=== PATIENT | female | born 1985 | race Caucasian/White ===

== ENCOUNTER → 2022-07-22 15:22 | Outpatient (BNVA) | payer OTHER, SELFPAY | PROVIDERS: PCP Family Medicine; Visit Provider Physician Assistant Surgical | DX: Z13.89 Encounter for screening for other disorder (principal) ==

== ENCOUNTER → 2022-08-05 08:04 | Outpatient (BNVA) | payer OTHER, SELFPAY | PROVIDERS: PCP Family Medicine; Visit Provider Surgery ==

== ENCOUNTER 2022-08-12 08:24 | Outpatient (REF) | payer OTHER, SELFPAY ==
--- NOTE | ~2022-08-12 | XR_ITS ---
EXAMINATION: XR CHEST CLINICAL INFORMATION: Bariatric service evaluation. E66.9. COMPARISON: None available. TECHNIQUE: 2 views of the chest were obtained. FINDINGS: The lungs are clear. Heart size normal. Vascularity normal. The costophrenic sulci are well-defined. The hilar and mediastinal contours and bony structures are unremarkable. XR/XR chest 2V IMPRESSION: Unremarkable examination.
[2022-08-12 08:41] LABS: MANUAL DIFF FLAG NO
[2022-08-12 09:18] LABS: Basophils Percent Auto 0.4 % (0-2); Eosinophils Absolute Auto 0.1 X10*3/uL (0.0-0.4); Eosinophils Percent Auto 1.9 % (0-4); Hematocrit 43.5 % (37.0-47.0); Hemoglobin 14.2 g/dl (12.0-16.0); Imm Gran Abs Auto 0.03 X10*3/uL (0.00-0.03); Imm Gran Pct Auto 0.4 % (0.0-0.4); Lymphocytes Absolute Auto 1.6 X10*3/uL (1.2-4.9); Lymphocytes Percent Auto 23.7 % (20-40); Mean Corpuscular HGB Conc 32.6 g/dl (31.0-35.0); Mean Corpuscular Hemoglobin 30.5 pg (27.0-33.0); Mean Corpuscular Volume 93.3 fL (80.0-98.0); Mean Platelet Volume 10.7 fL (9.4-12.3); Monocytes Absolute Auto 0.3 X10*3/uL (0.1-1.2); Monocytes Percent Auto 5.1 % (2-11); Neutrophils Absolute Auto 4.6 x10*3/uL (2.0-8.3); Neutrophils Percent Auto 68.5 % (45-73); Platelet Count 234 X10*3/uL (160-400); Red Blood Count 4.66 X10*6/uL (4.20-5.50); Red Cell Distribution Width 13.1 % (11.0-16.0); White Blood Count 6.7 X10*3/uL (4.8-10.8)
[2022-08-12 09:27] LABS: Estimated Average Glucose 103 mg/dL; Hemoglobin A1c % 5.2 %
[2022-08-12 10:01] LABS: Alanine Aminotransferase 21 U/L (0-31); Alkaline Phosphatase 73 U/L (39-117); Anion Gap 8 (12-20); Aspartate Amino Transferase 20 U/L (5-31); Bilirubin Total 0.4 mg/dL (0.0-1.0); Blood Urea Nitrogen 12 mg/dL (9-16); C Reactive Protein 0.23 mg/dL (< or = 0.50); Calcium 9.4 mg/dL (8.4-10.2); Carbon Dioxide 26 mmol/L (22-29); Chloride 108 mmol/L (96-108); Cholesterol 159 mg/dL; Estimated Glomerular Filt Rate > 60; Glucose Random 94 mg/dL (60-115); HDL Cholesterol 50 mg/dL; Iron 85 mcg/dL (30-160); LDL Cholesterol Calculated 87 mg/dl; Percent Iron Saturation 25 % (15-50); Potassium 4.4 mmol/L (3.3-5.1); Sodium 138 mmol/L (135-145); Total Iron Binding Capacity 338 mcg/dL (228-428); Total Protein 6.9 g/dL (6.5-8.0); Triglycerides 111 mg/dL; Unsaturated Iron Binding 253 ug/dL
[2022-08-12 10:30] LABS: Ferritin 48 ng/mL (10-122); Folate 6.4 ng/mL (> or = 4.0); Insulin 9 uU/mL (2-29); Vitamin B12 373 pg/mL (200-900); Vitamin D 25-OH Total 22.1 ng/mL (>30)
[2022-08-12 10:39] LABS: TSH reflex Free T4 2.88 uIU/mL (0.32-4.0)
[2022-08-13 16:13] LABS: Calcium (PTHI) 9.4 mg/dL (8.6-10.2); PTHI 42 pg/mL (16-77)
[2022-08-15 06:19] LABS: Zinc 72 mcg/dL (60-130)
[2022-08-16 12:23] LABS: Vitamin B1 8 nmol/L (8-30)
[2022-08-16 17:14] LABS: Vitamin A 48 mcg/dL (38-98)
== END 2022-08-12 08:25 | disposition home or self-care (01) ==
LOC: HO.10HDL 08:24
PROVIDERS: Visit Provider Surgery
DX: E66.9 Obesity, unspecified (principal); I10 Essential (primary) hypertension; Z68.35 Body mass index [BMI] 35.0-35.9, adult
CPT/HCPCS: 36415; 71046; 80053; 80061; 82306; 82607; 82728; 82746; 83036; 83525; 83540; 83970; 84425; 84443; 84590; 84630; 85025; 86140

== ENCOUNTER → 2022-08-19 13:43 | Outpatient (BNVA) | payer OTHER, SELFPAY | PROVIDERS: PCP Family Medicine; Visit Provider Dietitian, Registered | DX: E66.9 Obesity, unspecified (principal); Z68.33 Body mass index [BMI] 33.0-33.9, adult | CPT/HCPCS: 97802 ==

== ENCOUNTER → 2022-09-11 08:04 | Outpatient (BNVA) | payer OTHER, SELFPAY | PROVIDERS: PCP Family Medicine; Visit Provider Surgery ==

== ENCOUNTER → 2022-09-16 13:00 | Outpatient (BNVA) | payer OTHER, SELFPAY | PROVIDERS: PCP Family Medicine; Visit Provider Counselor Mental Health ==

== ENCOUNTER → 2022-09-17 13:18 | Outpatient (BNVA) | payer OTHER, SELFPAY | PROVIDERS: PCP Family Medicine; Visit Provider Dietitian, Registered | DX: E66.9 Obesity, unspecified (principal); I10 Essential (primary) hypertension; Z68.32 Body mass index [BMI] 32.0-32.9, adult | CPT/HCPCS: 97803 ==

== ENCOUNTER → 2022-09-30 13:24 | Outpatient (BNVA) | payer OTHER, SELFPAY | PROVIDERS: PCP Family Medicine; Visit Provider Surgery | DX: Z11.0 Encounter for screening for intestinal infectious diseases (principal) | CPT/HCPCS: 99211 ==

== ENCOUNTER 2022-10-01 19:49 | Outpatient (REF) | payer OTHER, SELFPAY ==
[2022-10-02 13:23] LABS: H Pylori Breath Test Negative (Negative)
== END 2022-10-01 19:50 | disposition home or self-care (01) ==
LOC: HO.LNP 19:49
PROVIDERS: Visit Provider Surgery
DX: E66.9 Obesity, unspecified (principal); Z68.35 Body mass index [BMI] 35.0-35.9, adult; I10 Essential (primary) hypertension
CPT/HCPCS: 83013

== ENCOUNTER → 2022-10-02 08:03 | Outpatient (BNVA) | payer OTHER, SELFPAY | PROVIDERS: PCP Family Medicine; Visit Provider Surgery ==

== ENCOUNTER → 2022-10-09 13:30 | Outpatient (BNVA) | payer OTHER, SELFPAY | PROVIDERS: PCP Family Medicine; Visit Provider Counselor Mental Health | DX: F41.9 Anxiety disorder, unspecified (principal); E66.9 Obesity, unspecified ==

== ENCOUNTER 2022-10-15 08:01 | Outpatient (REF) | payer OTHER, SELFPAY ==
--- NOTE | ~2022-10-15 | FL_ITS ---
EXAMINATION: XR FLUOROSCOPY UPPER GI WITH AIR CLINICAL INFORMATION: Obesity COMPARISON: None available. TECHNIQUE: Routine upper GI air-contrast study was performed. FINDINGS: Following oral administration of thick barium and effervescent granules there is normal antegrade propagation of bolus from the oral cavity through the pharynx, esophagus into stomach without any obstruction or narrowing. On placing supine and prone lying the course, caliber and peristalsis of the stomach, duodenal bulb and sweep is normal. The mucosal pattern of the duodenum and stomach is normal. No gastroesophageal reflux or hiatal hernia seen. FLUOROSCOPY TIME: 1.0 minutes DOSE AREA PRODUCT: 20.345 uGy-m2 (microgray-meter squared) FL/FL upper GI w air IMPRESSION: Unremarkable upper GI contrast study.
--- NOTE | ~2022-10-15 | US_ITS ---
EXAMINATION: US COMPLETE ABDOMEN WITH LIVER ELASTOGRAPHY CLINICAL INFORMATION: Obesity COMPARISON: None available. TECHNIQUE: Real-time imaging of the abdominal viscera. Noninvasive ultrasound liver fibrosis assessment is performed using Jay ElastPQ point quantification shear wave elastography (2D-SWE) with a C5-2 MHz transducer. Multiple elastography samples are obtained. FINDINGS: PANCREAS: Normal. ABDOMINAL AORTA: The proximal, middle, and distal aortic segments are normal in caliber. INFERIOR VENA CAVA: Visualized portions are normal. LIVER: Normal. The liver demonstrates normal size, contour and echogenicity. No focal lesion or intrahepatic biliary duct dilatation. The right lobe measures 15 cm in length. The left lobe measures 10 cm in length. Portal flow is normal/hepatopedal Shear wave liver elastography median stiffness is 1.6 m/s (reference: normal median stiffness is 1.3 m/s or less). IQR/median stiffness to assess sampling precision is 0.15 (reference: good quality data set is IQR/median stiffness of 0.15 or less). GALLBLADDER: Normal. The gallbladder is physiologically distended without evidence of stones, sludge, polyps, wall thickening or pericholecystic fluid. COMMON BILE DUCT: Normal in caliber measuring 0.3 cm in diameter. RIGHT KIDNEY: Normal. No hydronephrosis. No renal calculi or focal parenchymal lesions. The kidney measures 11 cm in maximum dimension. LEFT KIDNEY: Normal. No hydronephrosis. No renal calculi or focal parenchymal lesions. The kidney measures 11.4 cm in maximum dimension. SPLEEN: Normal. The spleen measures 11.6 cm in maximum dimension. FREE FLUID: None. US/US abdomen comp w elastography IMPRESSION: 1. Impression: Normal abdominal ultrasound. 2. Liver elastography: Adequate liver sampling. In the absence of other known clinical signs, rules out compensated advanced chronic liver disease. REFERENCE: Society of Radiologists in Ultrasound Liver Stiffness Thresholds (2020): LIVER STIFFNESS THRESHOLDS: *Liver Stiffness equal or less than 1.3 m/s: High probability of being normal. *Liver Stiffness less than 1.7 m/s: In the absence of other known clinical signs, rules out compensated advanced chronic liver disease. *Liver Stiffness 1.7-2.1 m/s: Suggestive of compensated advanced chronic liver disease but need further test for confirmation. *Liver Stiffness over 2.1 m/s: Rules in compensated advanced chronic liver disease. *Liver Stiffness over 2.4 m/s: Suggestive of clinically significant portal hypertension. QUALITY OF DATA SET: *IQR/Median value equal or less than 0.15 implies a quality data set. *IQR/Median value over 0.15 implies a poor quality data set. SIGNIFICANT CHANGE FROM PRIOR EXAM: Significant change if liver stiffness measurement is 10% or greater from prior exam. OTHER CONSIDERATIONS: The stage of liver fibrosis may be overestimated in the setting of acute hepatitis, liver inflammation, elevated liver function tests, hepatic vascular congestion, obstructive cholestasis, non-fasting state, and infiltrative diseases such as amyloidosis and lymphoma. In some patients with NAFLD, the liver stiffness thresholds for compensated advanced chronic liver disease may be lower. In causes other than viral hepatitis and NAFLD, liver stiffness thresholds are not well established.
--- NOTE | 2022-10-15 08:06 | ECG_ITS ---
Test Reason : obesity Blood Pressure : / mmHG Vent. Rate : 058 BPM Atrial Rate : 058 BPM P-R Int : 140 ms QRS Dur : 082 ms QT Int : 410 ms P-R-T Axes : 015 044 018 degrees QTc Int : 402 ms Sinus bradycardia Otherwise normal ECG No previous ECGs available Referred By: Pedro Mcintyre Electronically Signed By:KENAN MORRIS MD
== END 2022-10-15 08:02 | disposition home or self-care (01) ==
LOC: HO.US 08:01
PROVIDERS: PCP Family Medicine; Visit Provider Surgery
DX: Z01.818 Encounter for other preprocedural examination (principal); E66.9 Obesity, unspecified; K21.9 Gastro-esophageal reflux disease without esophagitis; I10 Essential (primary) hypertension
CPT/HCPCS: 74246; 76705; 76981; 93005

== ENCOUNTER → 2022-10-21 08:16 | Outpatient (BNVA) | payer OTHER, SELFPAY | PROVIDERS: PCP Family Medicine; Visit Provider Surgery ==

== ENCOUNTER → 2022-10-28 15:12 | Outpatient (BNVA) | payer OTHER, SELFPAY | PROVIDERS: PCP Family Medicine; Referring Provider Family Medicine; Visit Provider Surgery ==

== ENCOUNTER 2022-10-31 08:33 | Inpatient (IN) | payer OTHER, SELFPAY ==
[2022-10-24 08:41] LABS: MANUAL DIFF FLAG NO
[2022-10-24 09:16] LABS: Basophils Percent Auto 0.3 % (0-2); Eosinophils Absolute Auto 0.1 X10*3/uL (0.0-0.4); Eosinophils Percent Auto 1.4 % (0-4); Hematocrit 44.1 % (37.0-47.0); Hemoglobin 14.4 g/dl (12.0-16.0); Imm Gran Abs Auto 0.02 X10*3/uL (0.00-0.03); Imm Gran Pct Auto 0.3 % (0.0-0.4); Mean Corpuscular HGB Conc 32.7 g/dl (31.0-35.0); Mean Corpuscular Hemoglobin 30.6 pg (27.0-33.0); Mean Corpuscular Volume 93.8 fL (80.0-98.0); Mean Platelet Volume 10.9 fL (9.4-12.3); Monocytes Absolute Auto 0.4 X10*3/uL (0.1-1.2); Monocytes Percent Auto 6.8 % (2-11); Neutrophils Absolute Auto 4.2 x10*3/uL (2.0-8.3); Neutrophils Percent Auto 73.2 % (45-73); Platelet Count 205 X10*3/uL (160-400); Red Cell Distribution Width 13.3 % (11.0-16.0); White Blood Count 5.7 X10*3/uL (4.8-10.8)
[2022-10-24 09:23] LABS: Estimated Average Glucose 94 mg/dL; Hemoglobin A1c % 4.9 %
[2022-10-24 09:24] LABS: INTERNATIONAL NORM RATIO 0.9 (0.9-1.1); Prothrombin Time 10.5 SEC (10.0-13.1)
[2022-10-24 09:27] LABS: Partial Thromboplastin Time 28.2 SEC (26.0-36.4)
[2022-10-24 10:33] LABS: TSH reflex Free T4 1.81 uIU/mL (0.32-4.0)
[2022-10-24 10:42] LABS: Alanine Aminotransferase 35 U/L (0-31); Albumin Level 4.3 g/dL (3.5-5.0); Alkaline Phosphatase 80 U/L (39-117); Anion Gap 12 (12-20); Aspartate Amino Transferase 35 U/L (5-31); Bilirubin Total 0.8 mg/dL (0.0-1.0); Blood Urea Nitrogen 9 mg/dL (9-16); C Reactive Protein 0.45 mg/dL (< or = 0.50); Calcium 9.9 mg/dL (8.4-10.2); Carbon Dioxide 29 mmol/L (22-29); Chloride 105 mmol/L (96-108); Cholesterol 176 mg/dL; Estimated Glomerular Filt Rate > 60; Glucose Random 82 mg/dL (60-115); HDL Cholesterol 55 mg/dL; LDL Cholesterol Calculated 105 mg/dl; Potassium 4.5 mmol/L (3.3-5.1); Sodium 141 mmol/L (135-145); Total Protein 7.4 g/dL (6.5-8.0); Triglycerides 80 mg/dL
[2022-10-24 10:53] LABS: Insulin 11 uU/mL (2-29)
--- NOTE | 2022-10-26 13:03 | P.HPSUR_ITS ---
Pre-Procedural Eval Section A Date of Service: 10/26/22 The patient is an INPATIENT: Yes The History & Physical has been completed within 30 days and I have reviewed it.: Yes Section B Chief Complaint: Obesity, unspecified Relevant Family History (Specify if Yes): No Relevant Social History: None Present Medications: None Medical History: No relevant PMH History of Previous Operations: No relevant previous surgery Allergies: Allergies Allergy/AdvReac Type Severity Reaction Status Date / Time amoxicillin [From Augmentin] Allergy Mild Diarrhea Verified 10/21/22 09:56 clavulanic acid Allergy Mild Diarrhea Verified 10/21/22 09:56 [From Augmentin] bactrim AdvReac Abdominal Uncoded 10/21/22 09:56 Pain Review of Systems Sugical H&P ROS: Negative: Constitution, Cardiovascular, Respiratory, Isa rological, Psychiatric, Hem-Onc, Allergic/Immunologic, Gastrointestinal, Genitourinary, Musculoskeletal, Integumentary, Endocrine and Eyes/Ears/Nose/Throat Exam Surgical H&P Exam: Normal: HEENT, Normal: Heart, Normal: Lungs, Normal: Extremities, Normal: Abdomen, Normal: Skin and Normal: Neurological Plan Diagnosis/Plan: Unchanged I have reviewed the history and physical and performed a pertinent physical examination on my patient. No changes have occurred unless specified. Time Spent With Patient Time: Total time managing care of this patient today ____ minutes.
[2022-10-28 13:56] VITALS: BMI 30.5
--- NOTE | 2022-10-30 08:29 | HO.ANESPROP2 ---
Documented by User: Meka Pack NP 10/30/22 08:30 HPI - Anesthesia Eval Consult details Narrative: 37yo F for Gastrectomy Sleeve,EGD,poss diaphragmatic hernia,poss ventral hernia,poss open, PMFSH Active Problems Active Problems: All Active Problems (Updated 10/28/22 @ 13:47 by Jamee Bob, RN) Obesity (Acute) BMI 35.0-35.9,adult (Acute) Knee pain (Acute) Hip pain (Acute) Arnold-Chiari malformation (Acute) Migraines (Acute) Vitamin D deficiency (Acute) Vitamin B12 deficiency (Acute) Constipation (Acute) BMI 33.0-33.9,adult (Acute) Anxiety disorder, unspecified (Acute) BMI 31.0-31.9,adult (Acute) Hypertension (Acute) Past Medical History Medical History (Updated 10/31/22 @ 10:13 by Pedro Mcintyre MD) GERD (gastroesophageal reflux disease) History of palpitations Hypertension Family History Family History (Updated 07/22/22 @ 15:35 by Rosa M Grimaldo [facility]) Mother Mental health disorder Father Arthritis Sister No problems noted. Sister No problems noted. Sister Asthma Son Anxiety ADHD Autism disorder Surgical History Surgical History (Updated 10/31/22 @ 12:06 by Pedro Mcintyre MD) Hx of appendectomy Social History Social History (Updated 10/28/22 @ 13:46 by Jamee Bob, ESTHER) Household Members: None Household Members Other:: son age 14 yrs Housing: House Are you a primary care information associate to a significant other at home: Yes (son) Do you presently have visiting nurse or other home services: No Alcohol intake: current Alcohol intake frequency: holidays/special occasions only Patient Tobacco Use Status: Former Tobacco user Quit Date: 10/14/2022 Tobacco use type: Cigarette Years Smoked: 20 Use of substances other than those prescribed or required for medical reasons: No Substance Use Type: Marijuana Substance Use Frequency: Daily Currently Displaying Signs/Symptoms of Drug Intoxication Withdrawal: No Have you been hit, kicked, punched, or otherwise hurt by someone within the past year? If so, by whom?: No Do you feel safe in your current relationship?: Yes Is there a partner from a previous relationship who is making you feel unsafe now?: No Are you made to feel afraid or neglected: No Are you DNR?: No Advance Directives: No Advance Directives Information Provided: Yes Advance Directives on File: No Do you have thoughts of harming others: None Do you have a plan to hurt others: No Plan Recently lost weight without trying: No Nutrition Risks: No Nutritional Risk Patient : Yes FDLMP: 10/13/2022 : No Poor oral hygiene: No Meds Allergies Allergy/AdvReac Type Severity Reaction Status Date / Time amoxicillin [From Augmentin] Allergy Mild Diarrhea Verified 10/21/22 09:56 clavulanic acid Allergy Mild Diarrhea Verified 10/21/22 09:56 [From Augmentin] metronidazole [From Metrogel] Allergy Swelling Verified 10/31/22 08:58 bactrim AdvReac Abdominal Uncoded 10/21/22 09:56 Pain Home Medications Medication Instructions Recorded Confirmed Last Taken Type metoprolol succinate 25 mg 25 mg PO BEDTIME 07/22/22 10/31/22 10/30/22 History tablet,extended release 24 hr Exam Exam Date and Time: October 30, 2022 0829 Height,Weight and Vital Signs: Height 5 ft 2 in Weight 75.75 kg Pertinent Lab Results Pertinent Lab Results: Laboratory Tests 10/24/22 10/24/22 10/24/22 08:36 08:36 08:36 WBC 5.7 RBC 4.70 Hgb 14.4 Hct 44.1 MCV 93.8 MCH 30.6 MCHC 32.7 RDW 13.3 Plt Count 205 MPV 10.9 Immature Gran % (Auto) 0.3 Neut % (Auto) 73.2 H Lymph % (Auto) 18.0 L Loving % (Auto) 6.8 Eos % (Auto) 1.4 Baso % (Auto) 0.3 Lymph # (Auto) 1.0 L Loving # (Auto) 0.4 Eos # (Auto) 0.1 Baso # (Auto) 0.0 Abs Immat Gran (auto) 0.02 Absolute Neuts (auto) 4.2 Absolute Nucleated RBC 0.000 Nucleated RBC % (auto) 0.0 PT 10.5 INR 0.9 APTT 28.2 Sodium 141 Potassium 4.5 Chloride 105 Carbon Dioxide 29 Anion Gap 12 BUN 9 Creatinine 0.84 Estim Creat Clear Calc TNP Estimated GFR > 60 Random Glucose 82 Estimat Average Glucose Hemoglobin A1c % Insulin Level 11 Calcium 9.9 Total Bilirubin 0.8 AST 35 H ALT 35 H Alkaline Phosphatase 80 C-Reactive Protein 0.45 Total Protein 7.4 Albumin 4.3 Triglycerides 80 Cholesterol 176 LDL Cholesterol, Calc 105 HDL Cholesterol 55 TSH 1.81 Blood Type Antibody Screen 10/24/22 10/24/22 08:36 12:53 WBC RBC Hgb Hct MCV MCH MCHC RDW Plt Count MPV Immature Gran % (Auto) Neut % (Auto) Lymph % (Auto) Loving % (Auto) Eos % (Auto) Baso % (Auto) Lymph # (Auto) Loving # (Auto) Eos # (Auto) Baso # (Auto) Abs Immat Gran (auto) Absolute Neuts (auto) Absolute Nucleated RBC Nucleated RBC % (auto) PT INR APTT Sodium Potassium Chloride Carbon Dioxide Anion Gap BUN Creatinine Estim Creat Clear Calc Estimated GFR Random Glucose Estimat Average Glucose 94 Hemoglobin A1c % 4.9 Insulin Level Calcium Total Bilirubin AST ALT Alkaline Phosphatase C-Reactive Protein Total Protein Albumin Triglycerides Cholesterol LDL Cholesterol, Calc HDL Cholesterol TSH Blood Type O Negative Antibody Screen NEGATIVE Narrative Narrative: EKG 09/2022 Vent. Rate : 058 BPM ? ? Atrial Rate : 058 BPM ?? P-R Int : 140 ms? QRS Dur : 082 ms ? ? QT Int : 410 ms ? ? ? P-R-T Axes : 015 044 018 degrees ?? QTc Int : 402 ms ? Sinus bradycardia Otherwise normal ECG No previous ECGs available Assessment and Plan Assessment Anesthesia Assessment: Chart Reviewed Documented by User: Troy Clark MD 10/31/22 14:29 HPI - Anesthesia Eval Consult details Narrative: 37yo F for Gastrectomy Sleeve,EGD,poss diaphragmatic hernia,poss ventral hernia,poss open, As per patient no balance problems , dysphagia, or any other symptoms. saw neurologist a few years ago and had mRI done , was told malformation has resolved . [facility] Past Medical History Medical History (Updated 10/31/22 @ 10:13 by Pedro Mcintyre MD) GERD (gastroesophageal reflux disease) History of palpitations Hypertension Functional capacity: independent ambulation Family History Family History (Updated 07/22/22 @ 15:35 by Rosa M Grimaldo CMA) Mother Mental health disorder Father Arthritis Sister No problems noted. Sister No problems noted. Sister Asthma Son Anxiety ADHD Autism disorder Family history of problems with anesthesia: Yes (delayed emergence in mother .) Surgical History Surgical History (Updated 10/31/22 @ 12:06 by Pedro Mcintyre MD) Hx of appendectomy History of Problems with Anesthesia: No Social History Social History (Updated 10/28/22 @ 13:46 by Jamee Bob RN) Household Members: None Household Members Other:: son age 14 yrs Housing: House Are you a primary care information associate to a significant other at home: Yes (son) Do you presently have visiting nurse or other home services: No Alcohol intake: current Alcohol intake frequency: holidays/special occasions only Patient Tobacco Use Status: Former Tobacco user Quit Date: 10/14/2022 Tobacco use type: Cigarette Years Smoked: 20 Use of substances other than those prescribed or required for medical reasons: No Substance Use Type: Marijuana Substance Use Frequency: Daily Currently Displaying Signs/Symptoms of Drug Intoxication Withdrawal: No Have you been hit, kicked, punched, or otherwise hurt by someone within the past year? If so, by whom?: No Do you feel safe in your current relationship?: Yes Is there a partner from a previous relationship who is making you feel unsafe now?: No Are you made to feel afraid or neglected: No Are you DNR?: No Advance Directives: No Advance Directives Information Provided: Yes Advance Directives on File: No Do you have thoughts of harming others: None Do you have a plan to hurt others: No Plan Recently lost weight without trying: No Nutrition Risks: No Nutritional Risk Patient : Yes FDLMP: 10/13/2022 : No Poor oral hygiene: No Meds Allergies Allergy/AdvReac Type Severity Reaction Status Date / Time amoxicillin [From Augmentin] Allergy Mild Diarrhea Verified 10/21/22 09:56 clavulanic acid Allergy Mild Diarrhea Verified 10/21/22 09:56 [From Augmentin] metronidazole [From Metrogel] Allergy Swelling Verified 10/31/22 08:58 bactrim AdvReac Abdominal Uncoded 10/21/22 09:56 Pain Home Medications Medication Instructions Recorded Confirmed Last Taken Type metoprolol succinate 25 mg 25 mg PO BEDTIME 07/22/22 10/31/22 10/30/22 History tablet,extended release 24 hr Exam Narrative Narrative: EKG 09/2022 Vent. Rate : 058 BPM ? ? Atrial Rate : 058 BPM ?? P-R Int : 140 ms? QRS Dur : 082 ms ? ? QT Int : 410 ms ? ? ? P-R-T Axes : 015 044 018 degrees ?? QTc Int : 402 ms ? Sinus bradycardia Otherwise normal ECG No previous ECGs available Excercise Stress Test 06/18/2022 Negative exercise Stress test Patient Exercised for 9 minutes and 19 seconds on a standard Obie protocol acheiving a peak HR of 160 BPM which is 87 % MPHR . No chest pain and no ischemic EKG changes No sustained arrythmia . Rare isolated PAC. Airway Mallampati Class: IV Neck ROM: Full Loose/Missing/Broken Teeth: Yes Assessment and Plan Assessment Anesthesia Assessment: Anesthesia Plan Discussed Final Anesthetic Review Family History of Problems with Anesthesia: Yes (delayed emergence in mother .) History of Problems with Anesthesia: No NPO: Yes ASA Class: III Final Preanesthetic Review: Meds/Allgs Chart Reviewed, Consent Obtained/Reviewed and Anes Risks/Benef Reviewed Patient Risk: High Procedure Risk: Intermediate Anesthetic Plan Anesthetic Plan: GA Disposition: Standard PACU and Inp. Admit - Standard Bed
[2022-10-30 14:31] LABS: COVID-19 Test Negative (Negative); IDNOW Serial# 08D9AD1C
[2022-10-31] VITALS (17 sets, daily range): BP systolic 114–148; BP diastolic 70–92; PULSE 56–84; RESP 15–28; TEMP 36.2–36.6; O2SAT 95–100
[2022-10-31 08:41] LABS: UPreg QC Valid YES; Urine Pregnancy NEGATIVE (NEGATIVE)
[2022-10-31] MEDS: Aprepitant 32 MG/4.4 ML VIAL IVPUSH (09:00)
[2022-10-31] MEDS: Lactated Ringers 1,000 ML 999 ML IV (09:02)
--- NOTE | 2022-10-31 10:12 | PM.PNGS ---
Subjective Subjective Date of Service: 11/01/22 Interval history: Feels well. Mild incisional pain. She is tolerating phase 1 bariatric diet Physical Exam Vital Signs: Vital Signs: Last Vital Signs Temp 97.5 F 10/31/22 08:35 Pulse 67 10/31/22 08:35 Resp 15 10/31/22 08:35 BP 122/73 10/31/22 08:35 Pulse Ox 95 10/31/22 08:35 O2 Del Method Room Air 10/31/22 08:35 BMI result Body Mass Index 30.5 GI: Inspection: Yes normal to inspection, Yes incision (clean, dry and intact) and Yes obesity Palpation (GI): Soft to palpation Extrem: Right lower extremity: normal to inspection (no calf tenderness) Left lower extremity: normal to inspection (no calf tenderness) Objective Data Active Medications Lactated Ringer's (Lr) 1,000 mls @ 100 mls/hr IVCONT .Q10H PANCHO Lactated Ringer's (Lr) 1,000 mls @ 999 mls/hr IV .Q1H1M PANCHO Stop: 10/31/22 10:45 Last Admin: 10/31/22 09:02 Dose: 999 mls/hr Documented By: CARMEN Labs 10/24/22 08:36 10/24/22 08:36 Labs: Laboratory Results - last 24 hr 10/30/22 10/31/22 14:05 08:35 Urine Test NEGATIVE COVID-19 ([facility]) Negative COVID-19 Clin Com See Note Procedures Date of Service Date of Service: 11/01/22 Progress Note: A&P Assessment and plan (1) Obesity: Status: Acute Assessment and Plan: s/p laparoscopic sleeve gastrectomy and gastropexy Doing well Will check am labs and if OK the patient will be discharged home (2) BMI 31.0-31.9,adult: Status: Acute (3) Hypertension: Status: Acute (4) Arnold-Chiari malformation: Status: Acute (5) Knee pain: Status: Acute (6) Hip pain: Status: Acute (7) Migraines: Status: Acute (8) Steatosis, liver: Status: Acute (9) S/P laparoscopic sleeve gastrectomy: Status: Acute Time Spent With Patient Time: Total time managing care of this patient today ____ minutes. Quality Stroke Does the patient have a stroke diagnosis?: No VTE Prior VTE?: No VTE Risk Level:: Surgical - moderate VTE Device Contraindication: N/A - Device Ordered VTE Drug Contraindication: Treatment Not Indicated
--- NOTE | 2022-10-31 10:14 | PM.OP ---
Brief Operative Note Date of Service: 10/31/22 Pre-op diagnosis: Severe obesity with comorbidities (see below) Post-op diagnosis: same Procedure: INITIAL PATIENT BMI ON PRESENTATION AT OUR OFFICE: 35.1 kg/m2 LAST BMI BEFORE SURGERY: 31.8 kg/m2 COMORBIDITIES: hypertension, liver steatosis, knee/hip pain, migraines, Arnold-Chiari malformation ?The patient presented to the Weight Management Program with significant obesity that was negatively impacting the patient's comorbidities as listed above.? The program is a phased program with a special focus on preoperative medical weight management to promote substantial weight loss and prepare the patients for the second phase of the program: bariatric surgery. The patient participated in an intensive weekly lifestyle ?intervention and exercise program during which the patient ?has lost between the initial office visit and the last preoperative visit 19.4 lbs, or 10.1% of initial actual body weight. It was deemed appropriate for the patient to now have bariatric surgery. In light of the current Covid-19 pandemic and the well documented strong association of obesity and increased risk of worse outcomes if infected with Covid-19 (REFERENCES:https://pubmed.ncbi.nlm.nih.gov/13027685/,?https://pubmed.ncbi.nlm.nih.gov/49078004/), any delay in undergoing bariatric surgery may lead to the patient's worsening health condition and increased?risk of more severe Covid-19 disease if infected. In addition a recent?study from [facility] published in [facility] on 05/14/2021 ([email or web address]) found that, among patients with obesity, substantial weight loss achieved with surgery was associated with improved outcomes of COVID-19 infection. The findings suggest that obesity can be a modifiable risk factor for the severity of COVID-19 infection. In addition, the patient met the BMI-criteria for bariatric surgery based on the BMI on initial presentation. The patient should not be penalized for achieving such weight loss because ?it is not sustainable long-term without surgical intervention and it was achieved in preparation for bariatric surgery ?under my direction and based on my published research ([email or web address]).[email or web address] and?https://www.soard.org/article/[email or web address](24)18430-X/pdf) ?that a 10% preoperative weight loss improves long-term weight loss after surgery and reduces perioperative complications.? Insurance carriers such as [facility] have endorsed my recommendations ?and have included in their policies criteria to include a 10% preoperative weight loss requirement. PROCEDURE: Esophago-gastroscopy, laparoscopic sleeve gastrectomy and laparoscopic gastropexy INDICATIONS: This is a 37 year-old female who was electively scheduled for laparoscopic, possibly open sleeve gastrectomy. The risks and complications of the procedure were discussed with the patient in advance, particularly the possibility of ; pulmonary embolism; staple line leak; bleeding; GERD; cardiac, pulmonary, or renal complications; as well as long-term problems such as insufficient weight loss, vitamin deficiency, strictures, or ulcers. The patient understood all the risks, and was in agreement to proceed with surgery. DESCRIPTION OF PROCEDURE: After informed consent was obtained from the patient, the patient was given preoperative antibiotics, and was transferred to the operating room. After successful induction of general anesthesia, pneumatic compression devices were placed on both lower extremities. An upper endoscopy was performed next. The oropharynx and esophagus appeared to be within normal limits. There was no diaphragmatic hernia present consistent with the findings of the preoperative upper GI. The stomach was entered. Then after all fluid and air were suctioned and the stomach was fully decompressed, the scope was withdrawn and secured in the mid esophagus. The patient was then prepped and draped in the usual sterile manner, and abdominal access was established at the right upper quadrant with the Vernon technique. A 12 mm blunt port was inserted, and the abdomen was insufflated with CO2 to a pressure of 15 mmHg. Under direct visualization, additional ports were placed, specifically two 5 mm Versi-step ports to the left upper quadrant, and a 5 mm Versi-Step port to the right upper quadrant. 1% lidocaine plain was used to infiltrate all port sites as well as all fascia defects. Following that, the patient was placed in a steep reverse Trendelenburg position. An additional 5 mm port was placed to the right flank for the Mediflex retractor that was used to retract the left lobe of the liver. The gastro-esophageal fat pad was opened with the ultrasonic device (Ricardobeat, Olympus) and the anterior esophagus and hiatus were exposed. The angle of His was opened with the ultrasonic device the fundus of the stomach from any diaphragmatic and splenic attachments. I then opened the gastrocolic ligament between the transverse colon and the greater curvature of the stomach with the ultrasonic device to enter the lesser sac and facilitate the ligation of the short gastric vessels. I started at a mid-point along the greater curvature and using the Thunderbeat, all short gastric vessels were divided all the way to the angle of His until the left sarai was completely dissected at its entirety. I then divided the gastro-colic ligament distally to a distance of about 3-4 cm proximal to the pylorus. The stomach was then divided transversely with two Endo GISSELL-45 purple and three GISSELL-60 articulating purple loads using the [employer] stapler and loads. Every effort was made that the gastric sleeve had a tubular shape and an even caliber throughout. Once the sleeve resection was completed, the staple line of the gastric sleeve was reinforced with Hemoclips. The resected stomach was retrieved without difficulty from the Vernon port. A gastropexy was then performed in order to prevent postoperative GERD and partial gastric volvulus. Several interrupted 2.0 Surgidac sutures were placed between the sleeve's staple line and the previously divided greater omentum and gastro-colic ligament using the Endo-Stitch device. ?An upper endoscopy was performed. There was no narrowing at the GE junction. The scope was easily advanced all the way to the pylorus which was clearly visualized. There was no narrowing anywhere and the sleeve's caliber was even throughout. The sleeve's staple line was inspected and there was no evidence of ischemia, bleeding or dehiscence. At that point the gastroscope was withdrawn from the patient?s mouth while we were decompressing the bowel and the stomach from any remaining air. I looked into the lesser sac to see how the sleeve was situating and it was situating well. There was no bleeding from the staple line, spleen, or short gastric vessels. The Mediflex retractor was removed, and the undersurface of the liver was inspected and there was no bleeding. The patient was placed in supine position. I closed the fascial defect of the 12 mm port site with a figure of eight #1 Polysorb suture. Then 30cc Ropivacaine plain with 10 mg of Dexamethasone were used to infiltrate the fascial closure as well as all skin incisions. At this point, the abdomen was deflated, all ports were removed under direct vision, and no bleeding was noted from any of the port sites. The skin incisions were irrigated with saline and were closed with 4-0 absorbable monofilament sutures. Steri-Strips and OpSites were used to cover all incisions. The patient was extubated and was transferred in stable condition to the recovery room for further care. I was present and performed all leo parts of the procedure. Bruce was the medical claims assistant. There were no residents to assist with this case. Leonardo Mcintyre MD, PhD, FACS Surgeon: Pedro Mcintyre MD Anesthesia: GETA, local and other (TAP block) Was an Apprentice Cook used for this Procedure?: No Apprentice Cook: Era Barrera Estimated blood loss (mL): 10 IV fluids (mL): 2,100 Urine output (mL): 0 (No Dominguez to record output) Pathology: other (Stomach) Condition: stable Disposition: PACU
[2022-10-31] MEDS: fentaNYL citrate/PF 100 MCG/2 ML VIAL 25 MCG IVPUSH ×4 (12:22→12:37)
--- NOTE | 2022-10-31 12:25 | PM.DS ---
DS: Providers Provider Date of Service: 11/01/22 Date of admission: 10/31/22 08:33 Primary care physician: Elba Staples MD DS: Diagnosis Discharge Diagnosis (1) Obesity: Status: Acute (2) BMI 31.0-31.9,adult: Status: Acute (3) Hypertension: Status: Acute (4) Arnold-Chiari malformation: Status: Acute (5) Knee pain: Status: Acute (6) Hip pain: Status: Acute (7) Migraines: Status: Acute (8) Steatosis, liver: Status: Acute (9) S/P laparoscopic sleeve gastrectomy: Status: Acute DS: Summary Hospital Course Hospital Course: ADMITTING DIAGNOSIS: obesity, Arnold Chiari formation DISCHARGE DIAGNOSIS: same, s/p laparoscopic sleeve gastrectomy PAST SURGICAL HISTORY: appendectomy PROCEDURE: upper endoscopy, laparoscopic sleeve gastrectomy DISCHARGE SUMMARY: History of Present Illness: The patient is a 37 year-old woman with a BMI of 35.1 kg/m2 and associated co-morbidities as described above. The patient had extensive work-up, lost 19.4 lbs preoperatively and was electively scheduled for laparoscopic, possible open sleeve gastrectomy and gastropexy. Risks and complications of the surgery were discussed with the patient in advance, particularly the possibility of , pulmonary embolism, anastomotic leak, bleeding, bowel injury, GERD, cardiac, renal or pulmonary complications. The patient understood all the risks and was in agreement with the surgical plan. Hospital Course: The patient underwent an uneventful laparoscopic sleeve gastrectomy with gastropexy on the day of admission. Postoperatively, the patient was transferred to the surgical floor. The patient received IV Acetaminophen and IV dilaudid for pain control. Patient was started on bariatric phase 1 diet POD #0. On postoperative day one, the patient was feeling well without nausea, vomiting, fevers, or tachycardia. The patient had some mild incisional pain and the abdomen was soft. On the morning of postoperative day one, the patient was continued on 1 ounce of water or ice every half hour. During the day, the patient did fairly well, having some incisional pain, but able to ambulate adequately and to tolerate liquids well. Since the patient is doing well, we decided that the patient was ready to be discharged. The patient was given instructions to follow-up with me next week and to call my office for any fever over 101, persistent abdominal pain, nausea, vomiting, GERD, symptoms of DVT such as calf tenderness, or leg swelling, or pulmonary embolism such as chest pain or shortness of breath. The patient was also instructed to drink 40-60 ounces of liquids per day using the 1-ounce cups. The patient had been given prescriptions for Tylenol for pain, Zofran prn for nausea, and pantoprazole and carafate previously. The patient was encouraged to ambulate and use the incentive spirometer. The patient was allowed to shower, but no baths, and encouraged to stay active at home. All of these instructions were given to the patient personally. All questions were answered and the patient understood all instructions, the instructions were also given to the patient in print. Time Spent with Patient Time attestation: Total time managing care of this patient today ____ minutes. Discharge coordination time: Less than 30 minutes Quality: Safe Use of Opioids Does Pt have an Active Cancer Diagnosis on the Problem List?: No Quality: Stroke Does the patient have a stroke diagnosis?: No Physical Exam Vital Signs: Vital Signs: Last Vital Signs Temp 97.5 F 10/31/22 08:35 Pulse 67 10/31/22 08:35 Resp 24 H 10/31/22 12:22 BP 122/73 10/31/22 08:35 Pulse Ox 95 10/31/22 08:35 O2 Del Method Room Air 10/31/22 08:35 BMI result Body Mass Index 30.5 DS: Data Data Completed and Pending Pending studies at discharge: Pending at discharge 10/31/22 11:35 Surgical [PTH] Routine Labs on day of discharge: Laboratory Results - last 24 hr 10/30/22 10/31/22 14:05 08:35 Urine Test NEGATIVE COVID-19 ([facility]) Negative COVID-19 Clin Com See Note Discharge Plan Discharge Anticipated Discharge Date/Time: 11/01/22 10:23 Patient Disposition: Home, Self-Care Discharge Diagnosis: s/p sleeve gastrectomy Referrals: Elba Staples MD [Primary Care Provider] - 1 Week Discharge Medications: Continued pantoprazole 40 mg tablet,delayed release (DR/EC) 40 mg PO DAILY Qty: 30 2RF sucralfate 100 mg/mL suspension 10 ml PO BID Qty: 400 0RF ondansetron 4 mg tablet,disintegrating 4 mg PO Q12H Qty: 20 0RF Rx Instructions: Only take one every 12 hours as needed if you have nausea Held metoprolol succinate 25 mg tablet extended release 24 hr 25 mg PO BEDTIME Hold Instructions: Resume on 11/02/22. Check your blood pressure every evening and send it to Dr. Mcintyre. Do not take the medication before you hear from Dr. Mcintyre. Do not take the medication if your blood pressure is below 120/70 mmHg. Discharge Orders: Discharge Order (Routine); Ordered 11/01/22 Ordered By: Pedro Mcintyre Activity on Discharge: No heavy lifting Stand Alone Forms: Patient Portal Discharge page Care Plan Goals: weight loss Health Concerns: obesity Plan of Treatment: No tub baths, sex or returning to work until discussed at first post op appointment. No exercise, alcohol, tobacco or illegal drug use. Continue to use incentive spirometer hourly while awake. Walk in home for 5- 10 minutes every 2 hours during the first week. Continue phase 1 diet today and start phase 2 diet tomorrow morning. Follow all instructions in the bariatric handbook and call with any questions. 1. Please call your doctor or come back to the emergency room should any new symptoms arise. 2. You will receive a courtesy call from [facility] 24-48 hours after discharge. 3. Activity: abstain from alcohol, practice limited stair climbing, no bending, no driving, no exercise, no illicit substances, no lifting, no sex, no tub bath, no work. 4. Diet: continue as discussed with bariatric team.. 5. Dressing Change/Wound Care: Do not change or remove surgical dressings unless they are wet or soiled. 6. Call your doctor if: - Your temperature exceeds 101.5 F - You experience excessive pain or swelling - You have an unexpected reaction to medication - You have excessive bleeding - You experience continued vomiting/nausea - Your incision begins to separate - Your incision shows signs of infection such as increased redness, swelling, excessive pain, heat, or drainage (light blood or clear fluid is normal) 7. General instructions: No lifting greater than 5 lbs for the next 4 weeks[address] driving within 24 hours of taking narcotic pain medications. If you do not move your bowels in the next 2 days, please take milk of magnesia over the counter. Please follow the post op diet and do not advance your diet until you are seen in the office in about 2 weeks. Please walk around your home every hour or two to prevent blood clots from forming in your legs. You do not need to wake from sleeping to walk. Please sleep in a bed or couch to prevent kinking at the hips and knees. Please take your incentive spirometer (your lung roads superintendent) home with you and use it for the next few days to prevent pneumonias. You may shower, no hot tubs, baths or swimming pools. Please call the office with any questions or concerns such as increasing abdominal pain, fever, chills, shortness of breath, chest pain, leg pain or swelling, or redness or drainage from your incisions. Do not hesitate to contact the office with any questions at . The patient's medical history has been reviewed and they are considered low risk for post op DVT and therefore DVT prophylaxis is not considered necessary. Travel after surgery was reviewed. The patient has not disclosed any travel plans during the first 30 days after surgery and they have been advised that within the first 30 days after surgery any bus, plane, train or car travel over 2 hours in duration is contraindicated due to the possibility of developing blood clots from immobility. Any travel, needs to include periods of ambulation of 10 minutes in duration every 2 hours. The patient was instructed to discuss any plans for travel during this period with their bariatric surgeon. Assessment: stable, post op sleeve gastrectomy Discharge Date/Time: 11/01/22 10:17
[2022-10-31] MEDS: HYDROmorphone HCl 0.5 MG/0.5 ML SYRINGE 0.25 MG IVPUSH ×2 (12:53→20:49)
[2022-10-31 12:57] LABS: Hematocrit 38.9 % (37.0-47.0); Hemoglobin 13.1 g/dl (12.0-16.0)
[2022-10-31] MEDS: Famotidine/PF 20 MG/2 ML VIAL IVPUSH ×2 (13:03→19:42)
[2022-10-31 13:10] LABS: Anion Gap 14 (12-20); Blood Urea Nitrogen 6 mg/dL (9-16); Calcium 8.6 mg/dL (8.4-10.2); Carbon Dioxide 22 mmol/L (22-29); Chloride 107 mmol/L (96-108); Creatinine Clr Calc Pharmacy 99.9; Estimated Glomerular Filt Rate > 60; Glucose Random 100 mg/dL (60-115); Potassium 3.8 mmol/L (3.3-5.1); Sodium 139 mmol/L (135-145)
[2022-10-31] MEDS: Lactated Ringers 1,000 ML 100 ML IVCONT ×2 (13:53→23:17)
--- NOTE | 2022-10-31 14:15 | PHA.MEDREC ---
Pharmacy Consult ? Medication Reconciliation Pharmacy has completed the medication reconciliation.
[2022-10-31] MEDS: Acetaminophen 1,000 MG/100 ML PIGGYBACK 400 MG IV (17:54)
[2022-10-31] MEDS: 0.9 % Sodium Chloride Flush 3 ML SYRINGE IVFLUSH (19:42)
[2022-11-01] MEDS: Acetaminophen 1,000 MG/100 ML PIGGYBACK 400 MG IV (01:54)
[2022-11-01 03:24] VITALS: BP 129/85; PULSE 62; RESP 18; TEMP 36.3; O2SAT 98
[2022-11-01] MEDS: HYDROmorphone HCl 0.5 MG/0.5 ML SYRINGE 0.25 MG IVPUSH (05:44)
[2022-11-01 06:11] LABS: MANUAL DIFF FLAG NO
[2022-11-01 06:30] LABS: Basophils Percent Auto 0.2 % (0-2); Hematocrit 41.6 % (37.0-47.0); Hemoglobin 13.9 g/dl (12.0-16.0); Imm Gran Abs Auto 0.08 X10*3/uL (0.00-0.03); Imm Gran Pct Auto 0.6 % (0.0-0.4); Lymphocytes Absolute Auto 0.9 X10*3/uL (1.2-4.9); Mean Corpuscular HGB Conc 33.4 g/dl (31.0-35.0); Mean Corpuscular Hemoglobin 31.2 pg (27.0-33.0); Mean Corpuscular Volume 93.5 fL (80.0-98.0); Mean Platelet Volume 11.4 fL (9.4-12.3); Monocytes Absolute Auto 0.3 X10*3/uL (0.1-1.2); Monocytes Percent Auto 2.3 % (2-11); Neutrophils Absolute Auto 11.3 x10*3/uL (2.0-8.3); Neutrophils Percent Auto 89.9 % (45-73); Platelet Count 197 X10*3/uL (160-400); Red Blood Count 4.45 X10*6/uL (4.20-5.50); Red Cell Distribution Width 13.2 % (11.0-16.0); White Blood Count 12.6 X10*3/uL (4.8-10.8)
[2022-11-01 06:36] LABS: Anion Gap 14 (12-20); Blood Urea Nitrogen 6 mg/dL (9-16); Calcium 9.1 mg/dL (8.4-10.2); Carbon Dioxide 21 mmol/L (22-29); Chloride 105 mmol/L (96-108); Creatinine Clr Calc Pharmacy 110.7; Estimated Glomerular Filt Rate > 60; Glucose Random 99 mg/dL (60-115); Potassium 4.1 mmol/L (3.3-5.1); Sodium 136 mmol/L (135-145)
[2022-11-01 06:58] VITALS: BP 142/73; PULSE 70; RESP 16; TEMP 36.1; O2SAT 98
[2022-11-01] MEDS: Famotidine/PF 20 MG/2 ML VIAL IVPUSH (07:49)
--- NOTE | 2022-11-01 08:52 | MHC.CM.PN ---
pt dcd home no skilled services ordered by
[2022-11-01] MEDS: Acetaminophen Oral Liquid 650 MG/20.3 ML SOLUTION PO (09:40)
--- NOTE | 2022-11-01 10:03 | PC.NURSE ---
Pt participating in bariatric pain study. IV noted to be infiltrated in am. RENNY from bariatric team ordered PO tylenol, no new IV. On rounds Dr Mcintyre verbalized to pt she would discharge at 0930. She called mother who was at work to cotton picker. Pt was noted to have entered the PACU at 1230 yesterday, but refused to complete full 24 hour trial.
--- NOTE | 2022-11-04 09:19 | HO.POSTANES ---
Post Anesthesia Evaluation Post Anesthesia Evaluation Date of Service: 11/01/22 Vital Signs: 0658: 142/73, 70, 16, 97F, 98% Anesthesia: General Endotracheal-GETA Mental Status: Awake Pain Control: Satisfactory Nausea/Vomiting: None Hydration: Adequate Anesthesia-Related Issues: No Anes. Related Issues
== END 2022-11-01 10:17 | disposition home or self-care (01) | DRG 403 ==
LOC: HO.SSSA 12:25 → HO.S3 12:40
PROVIDERS: Nurse Practitioner; Physician Assistant; Physician Assistant Surgical; Admitting Provider Surgery; PCP Family Medicine; Visit Provider Surgery
PROC: 0DB64Z3 Excision of Stomach, Percutaneous Endoscopic Approach, Vertical (ICD-10-PCS; CPT 43845; principal; 2022-10-31 10:10)
DX: E66.9 Obesity, unspecified (principal); K76.0 Fatty (change of) liver, not elsewhere classified; G43.909 Migraine, unspecified, not intractable, without status migrainosus; Z68.31 Body mass index [BMI] 31.0-31.9, adult; I10 Essential (primary) hypertension; Q07.00 Arnold-Chiari syndrome without spina bifida or hydrocephalus; Z87.891 Personal history of nicotine dependence; Z79.899 Other long term (current) drug therapy
CPT/HCPCS: 36415; 80048; 80053; 80061; 81025; 83036; 83525; 84443; 85014; 85018; 85025; 85610; 85730; 86140; 86850; 86900; 86901; 87635; 88304; 88305; 88307; 88342; A4649; C9088; C9145; J0131; J1100; J1170; J1956; J2250; J2550; J2795; J3010

== ENCOUNTER → 2022-11-05 10:05 | Outpatient (BNVA) | payer OTHER, SELFPAY | PROVIDERS: PCP Family Medicine; Visit Provider Physician Assistant Surgical | DX: E66.9 Obesity, unspecified (principal); Z98.84 Bariatric surgery status; Z68.29 Body mass index [BMI] 29.0-29.9, adult | CPT/HCPCS: 99212 ==

== ENCOUNTER 2023-01-06 12:00 | Outpatient (AMB) | payer OTHER, SELFPAY ==
--- NOTE | 2023-01-06 11:37 | A.OFFVIS_ITS ---
Intake VS Expanded 01/06/23 12:09 Height 5 ft 2 in Weight 141 lb BMI 25.8 Intake Visit Reasons: VIDEO PO LSG 10/31/22 Boiler Tender Required: No Allergies amoxicillin [From Augmentin] Allergy (Mild, Verified 11/05/22 11:11) Diarrhea clavulanic acid [From Augmentin] Allergy (Mild, Verified 11/05/22 11:11) Diarrhea metronidazole [From Metrogel] Allergy (Verified 11/05/22 11:11) Swelling bactrim Adverse Reaction (Uncoded 10/21/22 09:56) Abdominal Pain HPI Nutrition Presentation Details LSG DOS 10/31/22 last weight 5 days PO LSG 160 current weight at 9.5wks PO 141# Reason for consult elevated BMI Diet Assmnt Details Consult today at request of pt for vitamins, but also has not been seen since 5 days post op. Missed appt in november with Meghan and was never r/s . Is communicating with Dr. Mcintyre. Has been instructed not to have any food yet so she has been eating the below per Dr. Mcintyre: 8-10am zone bar 11-1pm 5 little pieces of pea crisps 1pm 2 scoops orgain in almond milk 5-6pm another 5 crisps 7-9pm zone bar 10-11pm 5 pieces crisps Pt has tried (on her own) cottage cheese, pakistani yogurt, egg, avocado, chicken, crab rangoon just got the celebrate MVI and tolerated fine. pt would like to eat food. She shares noticing new feelings about feelings guilt around eating food. Hydration: adequate at least 40oz but could improve- pt acknowledges Exercise: ran out of time to discuss Diagnosis Nutrition problem #1 overweight/obesity As related to (etiology) #1 excess energy intake and physical inactivity As evidenced by (sign/symptom) #1 high BMI Monitoring/Goals Nutrition problem monitoring total energy intake, level of knowledge/skill, total PRO intake, total CHO intake and weight Outcome progress progressing Learning/Education Readiness to learn excellent Stages of change action Educational materials provided Yes Most Recent Diabetes Results: Cholesterol 176 mg/dL 10/24/22 HDL Cholesterol 55 mg/dL 10/24/22 Triglycerides 80 mg/dL 10/24/22 Creatinine 0.65 mg/dL (0.5-1.4) 11/01/22 Blood Urea Nitrogen 6 mg/dL (9-16) L 11/01/22 Sodium 136 mmol/L (135-145) 11/01/22 Potassium 4.1 mmol/L (3.3-5.1) 11/01/22 Chloride 105 mmol/L (96-108) 11/01/22 Carbon Dioxide 21 mmol/L (22-29) L 11/01/22 Calcium 9.1 mg/dL (8.4-10.2) 11/01/22 AST 35 U/L (5-31) H 10/24/22 ALT 35 U/L (0-31) H 10/24/22 Total Protein 7.4 g/dL (6.5-8.0) 10/24/22 Albumin 4.3 g/dL (3.5-5.0) 10/24/22 [facility] Medical History (Updated 11/25/22 @ 11:35 by ALEXA Best) BMI 31.0-31.9,adult GERD (gastroesophageal reflux disease) Hip pain History of palpitations Hypertension Knee pain Surgical History (Updated 11/05/22 @ 11:11 by Rosa M Grimaldo CMA) Hx of appendectomy S/P laparoscopic sleeve gastrectomy Family History Mother Mental health disorder Father Arthritis Sister No problems noted. Sister No problems noted. Sister Asthma Son Anxiety ADHD Autism disorder Social History Household Members: None Household Members Other:: son age 14 yrs Housing: House Are you a primary career services director to a significant other at home: Yes (son) Do you presently have visiting nurse or other home services: No Alcohol intake: current Alcohol intake frequency: holidays/special occasions only Patient Tobacco Use Status: Former Tobacco user Quit Date: 10/14/2022 Tobacco use type: Cigarette Years Smoked: 20 Substance Use Type: Marijuana Assessment & Plan Assessment & Plan (1) S/P laparoscopic sleeve gastrectomy: Code(s): Z98.84 - Bariatric surgery status Patient Instructions: 75g protein per day via breakfast: protein shake - either 2 scoops orgain or any on list provided today L- 2-3oz protein - (deli meat, tuna, chicken, pakistani yogurt, cottage cheese, protein bar, 2 eggs etc) S - same as lunch or shake D - 2oz protein, 1oz veg will use food scale for accuracy . monitor for adequate hydration. Continue celebrate vitamins. Will follow up in 2 weeks 01/21 at 1:30pm telehealth. Also recommended coming into the office for a weight check to monitor body composition Telehealth Telehealth Location of provider rendering services: practice address Location of patient: address on file Patient Identification confirmed using: Name, : Yes Telehealth method: video Patient verbally consented to treatment: Yes Patient verbally consented to billing insurance company: Yes Patient informed of any privacy concerns related to visit: Yes Minutes spent on Phone/Video with Pt.: 30 Coding Level of Care Code Nutr Indiv Subseq ([id number]) Diagnoses S/P laparoscopic sleeve gastrectomy Z98.84 Time Spent (min) 30
[2023-01-06 12:09] VITALS: BMI 25.8
== END 2023-01-06 13:51 | disposition home or self-care (01) ==
LOC: HO.HBS 13:50
PROVIDERS: PCP Family Medicine; Visit Provider Dietitian, Registered
DX: Z98.84 Bariatric surgery status (principal)

== ENCOUNTER → 2023-01-06 12:00 | Outpatient (BNVA) | payer OTHER, SELFPAY | PROVIDERS: PCP Family Medicine; Visit Provider Dietitian, Registered | DX: E66.9 Obesity, unspecified (principal); Z68.25 Body mass index [BMI] 25.0-25.9, adult; Z90.3 Acquired absence of stomach [part of]; Z98.84 Bariatric surgery status; Z71.3 Dietary counseling and surveillance | CPT/HCPCS: 97803 ==

== ENCOUNTER → 2023-02-18 08:31 | Outpatient (BNVA) | payer OTHER, SELFPAY | PROVIDERS: PCP Family Medicine; Visit Provider Dietitian, Registered | DX: E66.9 Obesity, unspecified (principal); Z68.23 Body mass index [BMI] 23.0-23.9, adult; Z98.84 Bariatric surgery status; Z71.3 Dietary counseling and surveillance | CPT/HCPCS: 97803 ==

== ENCOUNTER 2023-04-03 08:20 | Outpatient (AMB) | payer OTHER, SELFPAY ==
--- NOTE | 2023-04-03 08:15 | A.OFFVIS_ITS ---
Intake VS Expanded 04/03/23 08:22 Height 5 ft 2 in Weight 122 lb BMI 22.3 Intake Visit Reasons: VIDEO PO LSG 10/31/22 Allergies amoxicillin [From Augmentin] Allergy (Mild, Verified 11/05/22 11:11) Diarrhea clavulanic acid [From Augmentin] Allergy (Mild, Verified 11/05/22 11:11) Diarrhea metronidazole [From Metrogel] Allergy (Verified 11/05/22 11:11) Swelling bactrim Adverse Reaction (Uncoded 10/21/22 09:56) Abdominal Pain HPI Nutrition Presentation Details LSG DOS 10/31/22 Preop weight 167# - BMI 30.5 weight at 9.5wks PO 141# - BMI 25.8 weight at 4 MO PO 129# current weight at 5 MO 122 Reason for consult elevated BMI Diet Assmnt Details Shake premier protein - RTD - smalll amount of coffee - sips on this until 12pm - really enjoys it lunch at 1pm yogurt, tuna, lunch meat, 1 egg, skipping midafternoon shake - very busy with work dinner: doesnt really like eating Vitamins: taking the celebrate mvi at 1:30pm with her food, also taking biotin and calcium chew Exercise: None - I've always been really bad with this Hydration: Inadequate - 30oz . 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 near her has been getting reoccurring UTIs, which she was told could be related to inadequate hydration Diagnosis Nutrition problem #1 overweight/obesity As related to (etiology) #1 excess energy intake and physical inactivity As evidenced by (sign/symptom) #1 high BMI Monitoring/Goals Nutrition problem monitoring total energy intake, level of knowledge/skill, total PRO intake, total CHO intake and weight Outcome progress progressing Learning/Education Readiness to learn good Stages of change action Most Recent Diabetes Results: Cholesterol 176 mg/dL 10/24/22 HDL Cholesterol 55 mg/dL 10/24/22 Triglycerides 80 mg/dL 10/24/22 Creatinine 0.65 mg/dL (0.5-1.4) 11/01/22 Blood Urea Nitrogen 6 mg/dL (9-16) L 11/01/22 Sodium 136 mmol/L (135-145) 11/01/22 Potassium 4.1 mmol/L (3.3-5.1) 11/01/22 Chloride 105 mmol/L (96-108) 11/01/22 Carbon Dioxide 21 mmol/L (22-29) L 11/01/22 Calcium 9.1 mg/dL (8.4-10.2) 11/01/22 AST 35 U/L (5-31) H 10/24/22 ALT 35 U/L (0-31) H 10/24/22 Total Protein 7.4 g/dL (6.5-8.0) 10/24/22 Albumin 4.3 g/dL (3.5-5.0) 10/24/22 [facility] Medical History (Updated 11/25/22 @ 11:35 by ALEXA Best) GERD (gastroesophageal reflux disease) History of palpitations BMI 31.0-31.9,adult Hip pain Knee pain Hypertension Surgical History (Updated 11/05/22 @ 11:11 by Rosa M Grimaldo CMA) S/P laparoscopic sleeve gastrectomy Hx of appendectomy Family History Mother Mental health disorder Father Arthritis Sister No problems noted. Sister No problems noted. 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 recommended continue premier shake for breakfast lunch: protein and veg snack : serving of nuts dinner shake Will get her a doctors note to have water at her workstation. i sent recipe resources nad we talked about some more mild foods that can give her protein. f/u in 1 month Telehealth Telehealth Location of provider rendering services: practice address Location of patient: address on file Patient Identification confirmed using: Name, : Yes Telehealth method: video Patient verbally consented to treatment: Yes Patient verbally consented to billing insurance company: Yes Patient informed of any privacy concerns related to visit: Yes Minutes spent on Phone/Video with Pt.: 30 Coding Level of Care Code Nutr Indiv Subseq (32201) Diagnoses S/P laparoscopic sleeve gastrectomy Z98.84 Time Spent (min) 30
[2023-04-03 08:22] VITALS: BMI 22.3
== END 2023-04-03 08:47 | disposition home or self-care (01) ==
LOC: HO.HBS 08:20
PROVIDERS: PCP Family Medicine; Visit Provider Dietitian, Registered
DX: Z98.84 Bariatric surgery status (principal)

== ENCOUNTER → 2023-04-03 08:20 | Outpatient (BNVA) | payer OTHER, SELFPAY | PROVIDERS: PCP Family Medicine; Visit Provider Dietitian, Registered | DX: E66.9 Obesity, unspecified (principal); Z98.84 Bariatric surgery status; Z68.22 Body mass index [BMI] 22.0-22.9, adult | CPT/HCPCS: 97803 ==

== ENCOUNTER 2023-05-20 13:41 | Outpatient (AMB) | payer OTHER, SELFPAY ==
--- NOTE | 2023-05-20 13:31 | A.OFFVIS_ITS ---
Intake VS Expanded 05/20/23 13:37 Height 5 ft 2 in Weight 118 lb BMI 21.6 Intake Visit Reasons: VIDEO PO LSG 10/31/22 Allergies amoxicillin [From Augmentin] Allergy (Mild, Verified 11/05/22 11:11) Diarrhea clavulanic acid [From Augmentin] Allergy (Mild, Verified 11/05/22 11:11) Diarrhea metronidazole [From Metrogel] Allergy (Verified 11/05/22 11:11) Swelling bactrim Adverse Reaction (Uncoded 10/21/22 09:56) Abdominal Pain HPI Nutrition Presentation Details LSG DOS 10/31/22 Preop weight 167# - BMI 30.5 weight at 9.5wks PO 141# - BMI 25.8 weight at 4 MO PO 129# weight at 5 MO 122 weight at 118# 7MO PO 118 Reason for consult elevated BMI Diet Assmnt Details Shake premier protein - RTD - smalll amount of coffee - sips on this until 12pm - really enjoys it lunch at 1pm yogurt, tuna, lunch meat, 1 egg, dinner: 1-2oz protein shake Vitamins: taking the celebrate mvi at 1:30pm with her food, also taking biotin and calcium chew Exercise: None - I've always been really bad with this Hydration: improving. was previously 30oz but now much better and feels adequately hydrated is travel to [place] for 5 days Diagnosis Nutrition problem #1 overweight/obesity As related to (etiology) #1 excess energy intake and physical inactivity As evidenced by (sign/symptom) #1 high BMI Monitoring/Goals Nutrition problem monitoring total energy intake, level of knowledge/skill, total PRO intake, total CHO intake and weight Outcome progress progressing Learning/Education Readiness to learn good Stages of change action Most Recent Diabetes Results: Cholesterol 176 mg/dL 10/24/22 HDL Cholesterol 55 mg/dL 10/24/22 Triglycerides 80 mg/dL 10/24/22 Creatinine 0.65 mg/dL (0.5-1.4) 11/01/22 Blood Urea Nitrogen 6 mg/dL (9-16) L 11/01/22 Sodium 136 mmol/L (135-145) 11/01/22 Potassium 4.1 mmol/L (3.3-5.1) 11/01/22 Chloride 105 mmol/L (96-108) 11/01/22 Carbon Dioxide 21 mmol/L (22-29) L 11/01/22 Calcium 9.1 mg/dL (8.4-10.2) 11/01/22 AST 35 U/L (5-31) H 10/24/22 ALT 35 U/L (0-31) H 10/24/22 Total Protein 7.4 g/dL (6.5-8.0) 10/24/22 Albumin 4.3 g/dL (3.5-5.0) 10/24/22 [facility] Medical History (Updated 11/25/22 @ 11:35 by ALEXA Best) GERD (gastroesophageal reflux disease) History of palpitations BMI 31.0-31.9,adult Hip pain Knee pain Hypertension Surgical History (Updated 11/05/22 @ 11:11 by Rosa M Grimaldo CMA) S/P laparoscopic sleeve gastrectomy Hx of appendectomy Family History Mother Mental health disorder Father Arthritis Sister No problems noted. Sister No problems noted. 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 Patient Instructions: goal is weight maintenance now. pt would like to do a smoothie in the mornings and we talked about how to increase nutritional content with healthy fats and fruit. Encouraged snacking on nuts for healthy fats which she really enjoys. Next appt with PA, then resume follow up with me 2 mo later Telehealth Telehealth Location of provider rendering services: practice address Location of patient: other (car, not driving, [facility] ) Patient Identification confirmed using: Name, : Yes Telehealth method: video Patient verbally consented to treatment: Yes Patient verbally consented to billing insurance company: Yes Patient informed of any privacy concerns related to visit: Yes Minutes spent on Phone/Video with Pt.: 20 Coding Level of Care Code Nutr Indiv Subseq (74559) Diagnoses S/P laparoscopic sleeve gastrectomy Z98.84 Time Spent (min) 20
[2023-05-20 13:37] VITALS: BMI 21.6
== END 2023-05-20 13:55 | disposition home or self-care (01) ==
LOC: HO.HBS 13:41
PROVIDERS: PCP Family Medicine; Visit Provider Dietitian, Registered
DX: Z98.84 Bariatric surgery status (principal)

== ENCOUNTER → 2023-05-20 13:41 | Outpatient (BNVA) | payer OTHER, SELFPAY | PROVIDERS: PCP Family Medicine; Visit Provider Dietitian, Registered | DX: Z98.84 Bariatric surgery status (principal); Z71.3 Dietary counseling and surveillance | CPT/HCPCS: 97803 ==

== ENCOUNTER 2024-08-06 13:15 | Outpatient (AMB) | payer OTHER, SELFPAY ==
--- NOTE | 2024-08-06 13:29 | A.OFFVIS_ITS ---
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 Allergies amoxicillin [From Augmentin] Allergy (Mild, Verified 08/06/24 13:34) Diarrhea clavulanic acid [From Augmentin] Allergy (Mild, Verified 08/06/24 13:34) Diarrhea trazodone Allergy (Mild, Verified 08/06/24 13:34) Rash metronidazole [From Metrogel] Allergy (Verified 08/06/24 13:34) Swelling bactrim Adverse Reaction (Uncoded 10/21/22 09:56) Abdominal Pain Medication List - Last Reconciled 08/06/24 by ALEXA Lott calcium citrate-vitamin D3 315 mg-5 mcg (200 unit) 1 tab PO BID clonidine HCl mg PO clotrimazole 1% (Antifungal (clotrimazole)) 1 appl topical BID [id number] K 45 mg iron- 800 mcg-120 mcg (Bariatric Multivitamins) caps PO naltrexone mg PO DAILY triamcinolone acetonide 0.025% topical HPI Comments Details: Patient is a pleasant 38-year-old female who returns to the office today in follow-up. She is a proximally 1 year 9 month post sleeve gastrectomy performed on 10/31/2022. She was last seen in the office 05/20/2023. At that time, her weight was 118 lb with a BMI of 21.6. Weight today is 114 lb with a BMI of 20.9. She states that she does sometimes get irritation underneath the skin fold of her abdomen and within the umbilicus. This would have some odor to it and itch. This has just been treated with [id number] ointments with some resolution. She additionally reports some intermittent rash to the upper medial groin area. Additionally, she states that she had not been seen in approximately a year. She did have struggles with alcohol abuse but this has been addressed with counseling and meetings. She reports 6 months of sobriety. Attending meetings 3-5 times a week, and speaks with her sponsor daily. Meal plan: Premier protein ready to drink shake in the morning followed by 2 small meals with protein at each meal. Exercise plan: Nothing formal. She does enjoy hikes and running in the nicer weather. [facility] Medical History GERD (gastroesophageal reflux disease) History of palpitations BMI 31.0-31.9,adult Hip pain Knee pain Hypertension Surgical History S/P laparoscopic sleeve gastrectomy Hx of appendectomy Family History Mother Mental health disorder Father Arthritis Sister No problems noted. Sister No problems noted. 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 (son) Do you presently have visiting nurse or other home services: No Alcohol intake: former Patient Tobacco Use Status: Current everyday Tobacco user Tobacco use type: Cigarette Cigarettes Per Day: 6 Substance Use Type: Marijuana Physical Exam Vital Signs: Last Vital Signs Temp 99.6 F 08/06/24 13:40 Pulse 70 08/06/24 13:40 BP 120/72 08/06/24 13:40 Pulse Ox 99 08/06/24 13:40 Oxygen Delivery Method Room Air 08/06/24 13:40 BMI result Body Mass Index 20.8 Const General: healthy appearing and no acute distress Resp Effort & Inspection: normal respiratory effort Auscultation: clear to auscultation bilaterally Cardio Rate: regular rate Rhythm: regular rhythm GI Auscultation: normal bowel sounds Skin Other: No current rash within the umbilicus or suprapubic area. Extrem General: Yes normal to inspection Assessment & Plan Assessment & Plan (1) S/P laparoscopic sleeve gastrectomy: Code(s): Z98.84 - Bariatric surgery status Category: Surgical Plan: Patient has achieved a healthy weight and healthy lifestyle. She we will get labs drawn. She does take a multivitamin and calcium plus D daily. There was concern about possible need for medically necessary skin removal surgery of the abdomen. She states that she would intermittently get rash to the skin underneath her abdomen and in the umbilicus. She does not have an active rash however I have prescribed her clotrimazole. She will contact the office should she develop a rash. Plan on return to clinic for 2 year follow-up Orders: Orders Hemoglobin A1c Today E53.8 - Deficiency of other specified B group vitamins, E55.9 - Vitamin D deficiency, unspecified, K76.0 - Fatty (change of) liver, not elsewhere classified, Z98.84 - Bariatric surgery status Complete Blood Count Auto Diff Today E53.8 - Deficiency of other specified B group vitamins, E55.9 - Vitamin D deficiency, unspecified, K76.0 - Fatty (change of) liver, not elsewhere classified, Z98.84 - Bariatric surgery status Comprehensive Met. Panel Today E53.8 - Deficiency of other specified B group vitamins, E55.9 - Vitamin D deficiency, unspecified, K76.0 - Fatty (change of) liver, not elsewhere classified, Z98.84 - Bariatric surgery status Vitamin B12 and Folate Today E53.8 - Deficiency of other specified B group vitamins, E55.9 - Vitamin D deficiency, unspecified, K76.0 - Fatty (change of) liver, not elsewhere classified, Z98.84 - Bariatric surgery status Vitamin A Today E53.8 - Deficiency of other specified B group vitamins, E55.9 - Vitamin D deficiency, unspecified, K76.0 - Fatty (change of) liver, not elsewhere classified, Z98.84 - Bariatric surgery status Ferritin Today E53.8 - Deficiency of other specified B group vitamins, E55.9 - Vitamin D deficiency, unspecified, K76.0 - Fatty (change of) liver, not elsewhere classified, Z98.84 - Bariatric surgery status Insulin Today E53.8 - Deficiency of other specified B group vitamins, E55.9 - Vitamin D deficiency, unspecified, K76.0 - Fatty (change of) liver, not elsewhere classified, Z98.84 - Bariatric surgery status Lipid Panel Today E53.8 - Deficiency of other specified B group vitamins, E55.9 - Vitamin D deficiency, unspecified, K76.0 - Fatty (change of) liver, not elsewhere classified, Z98.84 - Bariatric surgery status IRON PROFILE Today E53.8 - Deficiency of other specified B group vitamins, E55.9 - Vitamin D deficiency, unspecified, K76.0 - Fatty (change of) liver, not elsewhere classified, Z98.84 - Bariatric surgery status Zinc Today E53.8 - Deficiency of other specified B group vitamins, E55.9 - Vitamin D deficiency, unspecified, K76.0 - Fatty (change of) liver, not elsewhere classified, Z98.84 - Bariatric surgery status C Reactive Protein Today E53.8 - Deficiency of other specified B group vitamins, E55.9 - Vitamin D deficiency, unspecified, K76.0 - Fatty (change of) liver, not elsewhere classified, Z98.84 - Bariatric surgery status Vitamin B1 Today E53.8 - Deficiency of other specified B group vitamins, E55.9 - Vitamin D deficiency, unspecified, K76.0 - Fatty (change of) liver, not elsewhere classified, Z98.84 - Bariatric surgery status TSH reflex Free T4 Today E53.8 - Deficiency of other specified B group vit amins, E55.9 - Vitamin D deficiency, unspecified, K76.0 - Fatty (change of) liver, not elsewhere classified, Z98.84 - Bariatric surgery status Vitamin D 25-OH Total Today E53.8 - Deficiency of other specified B group vitamins, E55.9 - Vitamin D deficiency, unspecified, K76.0 - Fatty (change of) liver, not elsewhere classified, Z98.84 - Bariatric surgery status Medications: New clotrimazole 1% (Antifungal (clotrimazole)) 1 appl topical BID 45 grams 2RF
[2024-08-06 13:40] VITALS: BP 120/72; PULSE 70; TEMP 37.6; O2SAT 99; BMI 20.8
== END 2024-08-06 14:07 | disposition home or self-care (01) ==
LOC: HO.HBS 13:16
PROVIDERS: PCP Family Medicine; Visit Provider Physician Assistant Surgical
DX: Z71.3 Dietary counseling and surveillance (principal); Z90.3 Acquired absence of stomach [part of]; Z98.84 Bariatric surgery status
CPT/HCPCS: 99213

== ENCOUNTER → 2024-08-06 13:15 | Outpatient (BNVA) | payer OTHER, SELFPAY | PROVIDERS: PCP Family Medicine; Visit Provider Physician Assistant Surgical | DX: Z98.84 Bariatric surgery status (principal) | CPT/HCPCS: 99212 ==